=== PATIENT | female | born 1995 | race Caucasian/White ===

== ENCOUNTER 2023-01-08 01:30 | Emergency (ER) | payer OTHER, SELFPAY ==
[2023-01-08] VITALS (7 sets, daily range): BP systolic 115–144; BP diastolic 64–91; PULSE 89–122; RESP 16–26; TEMP 36.7; O2SAT 99–100; BMI 24.9
[2023-01-08] MEDS: ONDANSETRON 2 MG/ML inj 4 MG IVP (01:50)
[2023-01-08] MEDS: LORazepam 2 MG/ML inj 0.5 MG IVP (01:52)
--- NOTE | 2023-01-08 01:54 | ED.GENADULT ---
HPI - General Adult General Time Seen by Provider: 01:55 Date Seen: 01/08/23 Chief complaint: Anxiety Stated complaint: Vomiting, feels like she can't breath. Time Seen by Provider: 01/08/23 01:40 Source: patient, RN notes reviewed and old records reviewed Mode of arrival: ambulatory Limitations: no limitations History of Present Illness HPI narrative: 27-year-old female who comes in today with nausea vomiting. Patient has been dealing with increased anxiety for the last couple of weeks, tonight woke up with nausea and vomiting just prior to coming the emergency department. She denies fever, chills, chest pain, breathing difficulty currently, abdominal pain, diarrhea, hematemesis, urinary symptoms. She has not taken anything for her symptoms. Related Data Home Medications Medication Instructions Recorded Confirmed drospirenone 3 mg-ethinyl 1 tab PO DAILY 01/08/23 01/08/23 estradiol 0.02 mg tablet (Sheeba (28)) fluoxetine 40 mg capsule mg PO 01/08/23 Allergies Allergy/AdvReac Type Severity Reaction Status Date / Time amoxicillin AdvReac Verified 01/08/23 01:40 Review of Systems Status of ROS: Reports: 10 or more systems reviewed and unremarkable except as noted in History and below [facility] Medical History (Updated 01/08/23 @ 02:34 by Vincenzo Bosch MD) No significant past medical history Surgical History (Updated 01/08/23 @ 01:45 by Nash Devlin RN) No significant past surgical history Social History Smoking Status: Never smoker Second hand tobacco smoke exposure: No How often do you have a drink containing alcohol: never How often do you have six or more drinks on one occasion: Never AUDIT-C Alcohol total score: 0 Non-prescribed substance use: denies use Exam Narrative: Exam Narrative: General: Well-developed and well-nourished, appears anxious Head: Atraumatic and normocephalic Eyes: Pupils are equal reactive, extraocular motions intact, conjunctiva clear ENT: External nose and ears are normal, posterior pharynx without erythema or exudate, clear rhinorrhea Neck: No midline cervical tenderness, full spontaneous range of motion the neck, trachea midline, no adenopathy Heart: Tachycardia rate and rhythm no murmurs or thrills Lungs: Clear to auscultation bilaterally without wheezes or crackles Abdomen: Soft, nontender, nondistended with active bowel sounds Musculoskeletal: No tenderness, deformity, or edema Neurologic: Awake, alert, and oriented x3, no gross focal neurologic deficits, cranial nerves intact as tested Psych: Mood and affect are appropriate Skin: No rashes Const: Vital Signs, click to edit/add: Vital Signs - 24 hr 01/08/23 01:37 01/08/23 01:50 01/08/23 02:00 Temperature 98.1 F Pulse Rate 99 Pulse Rate [Pulse Oximeter] 122 H Respiratory Rate 26 H 16 Blood Pressure 129/80 Blood Pressure [Ri ght Upper Arm] 144/91 H Pulse Oximetry 99 99 100 Oxygen Delivery Me thod Room Air Course Course ED Course: Patient seen examined, prior records reviewed. Patient presents today with anxiety for couple weeks, vomiting this evening. On exam, tachycardic, hyperactive bowel sounds. Lungs are clear, no abdominal tenderness. Labs ordered along with Zofran and Ativan, will monitor in the department. Reevaluation(s) Time of Reevaluation #1: 02:33 Reevaluation #1: Labs independently interpreted by me with normal basic panel, normal hepatic panel other than slightly elevated AST, alcohol negative. Patient is feeling better after Zofran and Ativan and is stable for discharge. On recheck, she says she has a little lightheaded in her head feels ?floaty. ? This likely as a side effect of the Ativan and should resolve, fluid boluses ordered. Vital Signs Vital signs: Initial Vital Signs Temperature 98.1 F 01/08/23 01:37 Temperature Source Temporal Artery Scan 01/08/23 01:37 Pulse Rate 122 H 01/08/23 01:37 Respiratory Rate 26 H 01/08/23 01:37 Respiratory Effort Normal, Spontaneous, Non-Labored 01/08/23 01:37 Respiratory Depth Normal 01/08/23 01:37 Respiratory Pattern Normal 01/08/23 01:37 Blood Pressure 144/91 H 01/08/23 01:37 Blood Pressure Mean 108 H 01/08/23 01:37 Blood Pressure Position Sitting 01/08/23 01:37 Pulse Oximetry 99 01/08/23 01:37 Oxygen Delivery Method Room Air 01/08/23 01:37 Vital Signs Temperature 98.1 F 01/08/23 01:37 Pulse Rate 122 H 01/08/23 01:37 Respiratory Rate 26 H 01/08/23 01:37 Blood Pressure 144/91 H 01/08/23 01:37 Pulse Oximetry 99 01/08/23 01:37 Oxygen Delivery Method Room Air 01/08/23 01:37 Temperature 98.1 F 01/08/23 01:37 Pulse Rate 99 01/08/23 02:00 Respiratory Rate 16 01/08/23 02:00 Blood Pressure 129/80 01/08/23 02:00 Pulse Oximetry 100 01/08/23 02:00 Oxygen Delivery Method Room Air 01/08/23 01:37 Medical Decision Making Medical Records Medical records reviewed: Yes I reviewed the patient's medical records Lab Data Lab results reviewed: Yes I reviewed the patient's lab results Labs: Lab Results 01/08/23 Range/Units 01:35 Sodium 140 (135-149) mmol/L Potassium 4.1 (3.6-5.1) mmol/L Chloride 104 (96-114) mmol/L Carbon Dioxide 22 (20-32) mmol/L Anion Gap 14 (7-15) mEq/L BUN 10 (5-24) mg/dL Creatinine 0.7 (0.5-1.5) mg/dL Estimated Creat Clear 104.24 Estimated GFR 121 ml/min Glucose 100 (60-115) mg/dL Calcium 10.1 (8.4-10.6) mg/dL Magnesium 2.0 (1.5-2.6) mg/dL Total Bilirubin 0.7 (0.1-1.5) mg/dL Direct Bilirubin 0.2 (0.0-0.5) mg/dL AST 46 H (12-35) U/L ALT 22 (4-35) U/L Alkaline Phosphatase 114 (40-150) U/L Total Protein 9.1 H (6.0-8.3) g/dL Albumin 4.9 (3.3-5.0) g/dL Ethyl Alcohol < 0.01 L (0.01-0.03) % Discharge Plan Discharge Clinical Impression: Acute anxiety, Nausea & vomiting Patient Disposition: Home, Self-Care Condition: Stable Instructions: Acute Nausea and Vomiting (DC), Anxiety (ED) Additional Instructions: Take medications as prescribed. You may develop some diarrhea in the next 24 hours. Activity Level: Activity as Tolerated Discharge Diet: Regular Prescriptions: No Action fluoxetine 40 mg capsule PO drospirenone-ethinyl estradiol [Sheeba (28)] 3-0.02 mg tablet 1 tab PO DAILY Follow Up/Referrals: Provider,Not a Local [Primary Care Provider] - Stand Alone Forms: [employer] Info Instructions
[2023-01-08] MEDS: 0.9 % SODIUM CHLORIDE 500 ML 500 ML 6000 ML IV (02:00)
[2023-01-08 02:13] LABS: Albumin* 4.9 g/dL (3.3-5.0); Chloride* 104 mmol/L (96-114); Sodium* 140 mmol/L (135-149)
[2023-01-08 02:14] LABS: Potassium* 4.1 mmol/L (3.6-5.1)
[2023-01-08 02:15] LABS: Creatinine* 0.7 mg/dL (0.5-1.5); Est. Creatinine Clearance* 104.24; Estimated Glomerular Filt Rate 121 ml/min
[2023-01-08 02:16] LABS: Alanine Aminotransferase* 22 U/L (4-35); Alkaline Phosphatase* 114 U/L (40-150); Anion Gap 14 mEq/L (7-15); Aspartate Amino Transferase* 46 U/L (12-35); Bilirubin Direct* 0.2 mg/dL (0.0-0.5); Bilirubin Total* 0.7 mg/dL (0.1-1.5); Blood Urea Nitrogen* 10 mg/dL (5-24); Calcium* 10.1 mg/dL (8.4-10.6); Carbon Dioxide* 22 mmol/L (20-32); Glucose* 100 mg/dL (60-115); Total Protein* 9.1 g/dL (6.0-8.3)
[2023-01-08 02:23] LABS: Ethanol* < 0.01 % (0.01-0.03)
== END 2023-01-08 04:45 | disposition home or self-care (01) ==
PROVIDERS: Emergency Provider Family Medicine
DX: R11.2 Nausea with vomiting, unspecified (principal); F41.9 Anxiety disorder, unspecified
CPT/HCPCS: 36415; 80048; 80076; 82077; 83735; 94761; 96374; 96375; 99284; J2060; J2405; J7120

== ENCOUNTER 2023-01-16 10:24 | Emergency (ER) | payer OTHER, SELFPAY ==
[2023-01-16 10:33] VITALS: BP 160/121; PULSE 123; RESP 14; TEMP 37.7; O2SAT 98; BMI 24.9
[2023-01-16] MEDS: LORazepam 2 MG/ML inj 1 MG IM (11:05)
[2023-01-16 11:11] VITALS: O2SAT 98
--- NOTE | 2023-01-16 11:56 | ED.GENADULT ---
HPI - General Adult General Chief complaint: Nausea/Vomiting Stated complaint: Short of breath Time Seen by Provider: 01/16/23 10:56 History of Present Illness HPI narrative: This 27-year-old female comes in with lots of anxiety. She has a history of depression and anxiety symptoms. She states that she has been taking Prozac 60 mg daily and bupropion for the past couple years. This was working well for her until about a month ago when she began having significant increase of anxiety with insomnia. She states that there are some circumstances at of triggered this including some attitude Z and actions of people around her that are negative toward her. Prior to starting Prozac she had been taking Zoloft for a couple years. She does not report any suicidality. She does not indicate any hallucinations or other problems. She has increased heart rate and is tearful and has nausea and vomiting. She attributes all these symptoms to anxiety. Related Data Home Medications Medication Instructions Recorded Confirmed drospirenone 3 mg-ethinyl 1 tab PO DAILY 01/08/23 01/16/23 estradiol 0.02 mg tablet (Sheeba (28)) fluoxetine 40 mg capsule 120 mg PO 01/08/23 Previous Rx's Medication Instructions Recorded escitalopram oxalate 10 mg tablet 10 mg PO DAILY #60 tabs 01/16/23 (Lexapro) lorazepam 1 mg tablet (Ativan) 1 mg PO BID PRN #20 tabs 01/16/23 Allergies Allergy/AdvReac Type Severity Reaction Status Date / Time amoxicillin AdvReac Verified 01/08/23 01:40 Review of Systems Status of ROS: Reports: 10 or more systems reviewed and unremarkable except as noted in History and below Narrative: Constitutional: No fevers, no weight gain or loss. Eyes: No discharge. No vision changes. HENT: No congestion, no sore throat, no ear pain. Cardiovascular: No chest pain, no palpitations. Respiratory: No shortness of breath, no wheezes, no cough. Gastrointestinal: No abdominal pain, no vomiting, no diarrhea. Genitourinary: No dysuria, no hematuria. Musculoskeletal: Normal range of motion. Skin: No rashes, no pruritis. Neurological: No dizziness, weakness, sensory change, speech change. Endo/Heme/Allergies: No bruising or bleeding. No polydipsia. Pysch: no suicidality. Depression with anxiety. Insomnia. All other systems reviewed and are negative. PFSH PFSH Medical History (Updated 01/16/23 @ 12:03 by Eh Bernard MD) No significant past medical history Surgical History (Updated 01/08/23 @ 01:45 by Nash Devlin RN) No significant past surgical history Social History Smoking Status: Never smoker Second hand tobacco smoke exposure: No How often do you have a drink containing alcohol: never How often do you have six or more drinks on one occasion: Never AUDIT-C Alcohol total score: 0 Non-prescribed substance use: denies use Exam Narrative: Exam Narrative: Constitutional: Well-developed, well-nourished. HEENT: Normocephalic, atraumatic. Neck: Normal range of motion. Nontender. Supple. Heart: Regular. No murmurs. Normal rate. Intact distal pulses. Lungs: Clear to auscultation. No chest discomfort. No wheezes, rhonchi, or rales. Abdomen: Normal bowel sounds. Nontender. No rebound tenderness. Genitalia: Deferred. Back: No midline tenderness. Normal range of motion. Extremities: Normal range of motion. No injury. Skin: Intact. No rash. Warm. No erythema or pallor. Neurologic: No altered sensation. No weakness. Alert and oriented. Psychiatric: No suicidality. Tearful and fidgeting with anxiety or panic symptoms. Nursing notes and vitals signs are reviewed. Const: Vital Signs, click to edit/add: Vital Signs - 24 hr 01/16/23 10:33 01/16/23 11:11 Temperature 99.8 F H Pulse Rate [Pulse Oximeter] 123 H Respiratory Rate 14 Blood Pressure [Ri ght Upper Arm] 160/121 H Pulse Oximetry 98 98 Oxygen Delivery Me thod Room Air Course Vital Signs Vital signs: Initial Vital Signs Temperature 99.8 F H 01/16/23 10:33 Temperature Source Temporal Artery Scan 01/16/23 10:33 Pulse Rate 123 H 01/16/23 10:33 Pulse Rhythm Regular 01/16/23 10:33 Respiratory Rate 14 01/16/23 10:33 Blood Pressure 160/121 H 01/16/23 10:33 Blood Pressure Mean 134 H 01/16/23 10:33 Blood Pressure Position Sitting 01/16/23 10:33 Pulse Oximetry 98 01/16/23 10:33 Oxygen Delivery Method Room Air 01/16/23 10:33 Vital Signs Temperature 99.8 F H 01/16/23 10:33 Pulse Rate 123 H 01/16/23 10:33 Respiratory Rate 14 01/16/23 10:33 Blood Pressure 160/121 H 01/16/23 10:33 Pulse Oximetry 98 01/16/23 10:33 Oxygen Delivery Method Room Air 01/16/23 10:33 Temperature 99.8 F H 01/16/23 10:33 Pulse Rate 123 H 01/16/23 10:33 Respiratory Rate 14 01/16/23 10:33 Blood Pressure 160/121 H 01/16/23 10:33 Pulse Oximetry 98 01/16/23 11:11 Oxygen Delivery Method Room Air 01/16/23 10:33 Medical Decision Making MDM Narrative Medical decision making narrative: This patient arrives with lots of anxiety and panic. She has had some nausea with vomiting and did not feel that she could take an oral medication. She did receive an intramuscular injection of Ativan 1 mg. This brought significant improvement to her symptoms. She does see a therapist and has been to a psychiatrist in the past. She also has a primary physician. It seems that these current medications she is on are not sufficiently managing her symptoms especially as that is related to anxiety. I discussed options with her including switching out of Prozac into a different medication. She is agreeable to this plan and will taper off of her Prozac and into Lexapro. Additionally I did prescribe Ativan tablets and stressed the importance of avoiding alcohol and stated that we will not refill this medication but this should help her in the transition to hopefully a better long-term regimen for treating her depression and anxiety. She is instructed to follow-up with her primary physician and psychiatrist if able. She also can connect with her therapist. Discharge Plan Discharge Clinical Impression: Acute anxiety Patient Disposition: Home, Self-Care Condition: Improved Additional Instructions: Decrease Prozac to 2 tablets daily for 1 week then 1 tablet daily for the next week then discontinue. Simultaneously start Lexapro 10 mg daily for 1 week then increase to 20 mg daily. Use Ativan as needed for breakthrough anxiety symptoms. Follow-up with primary physician and/or psychiatrist for ongoing management. Return if worsening. Prescriptions: New lorazepam [Ativan] 1 mg tablet 1 mg PO BID PRNQty: 20 0RF escitalopram oxalate [Lexapro] 10 mg tablet 10 mg PO DAILY Qty: 60 2RF No Action fluoxetine 40 mg capsule 120 mg PO drospirenone-ethinyl estradiol [Sheeba (28)] 3-0.02 mg tablet 1 tab PO DAILY Follow Up/Referrals: Provider,Not a Local [Primary Care Provider] - Stand Alone Forms: [employer] Info Instructions
[2023-01-16 12:00] VITALS: PULSE 98; RESP 14; O2SAT 100
--- NOTE | 2023-01-16 12:03 | ED.NURSE ---
Pt states she feels improvement after med.
[2023-01-16 12:13] VITALS: BP 160/121; PULSE 92; RESP 14; TEMP 37.7
== END 2023-01-16 12:13 | disposition home or self-care (01) ==
PROVIDERS: Emergency Provider Emergency Medicine Emergency Medical Services
DX: F41.9 Anxiety disorder, unspecified (principal)
CPT/HCPCS: 94761; 96372; 99284; J2060

== ENCOUNTER 2023-01-29 07:20 | Outpatient (CLI) | payer OTHER, SELFPAY | END 2023-01-29 07:21 | disposition home or self-care (01) | LOC: AMB 02-01 15:14 | PROVIDERS: PCP Family Medicine; Visit Provider Emergency Medicine | DX: R45.851 Suicidal ideations (principal) | CPT/HCPCS: A0425; A0429 ==

== ENCOUNTER 2023-01-29 07:44 | Emergency (ER) | payer OTHER, SELFPAY ==
[2023-01-29 07:53] VITALS: BP 147/101; PULSE 99; RESP 18; TEMP 37.3; O2SAT 99
[2023-01-29 08:14] LABS: Appearance Urine Clear (Clear); Bilirubin Urine Negative (Negative); Blood Urine Negative (Negative); Color Urine Yellow (Yellow); Glucose Urine Negative (Negative); Ketones Urine Negative (Negative); Leukocyte Esterase Urine Negative (Negative); Nitrite Urine Negative (Negative); Protein Urine Negative (Negative); Urobilinogen Urine 0.2 (0.2-1.0)
[2023-01-29 08:24] LABS: Amphetamine Screen Urine Negative (Negative); Barbiturate Screen Urine Negative (Negative); Benzodiazepines Screen Urine POSITIVE (Negative); Cannabinoid Screen Urine Negative (Negative); Cocaine Screen Urine Negative (Negative); Methadone Screen Urine Negative (Negative); Methamphetamines Screen Urine Negative (Negative); Opiate Screen Urine Negative (Negative); Oxycodone Screen Urine Negative (Negative); Phencyclidine Screen Urine Negative (Negative); Tricyclic Antidepressant Urine Negative (Negative)
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
[2023-01-29 08:28] LABS: Bacteria Urine Few; RBC Urine 0-2 (0-2); Squamous Epithelial Cell Urine Few (None-Few); WBC Urine 0-2 (0-5)
[2023-01-29 08:29] LABS: Amorphous Sediment Urine Few
[2023-01-29] MEDS: LORazepam 0.5 MG TABLET PO (10:44)
[2023-01-29] MEDS: ONDANSETRON ODT 4 MG TAB PO (10:44)
[2023-01-29] MEDS: ACETAMINOPHEN 500 MG TABLET 1000 MG PO (10:44)
== END 2023-01-29 10:43 | disposition home or self-care (01) ==
PROVIDERS: Emergency Provider Student in an Organized Health Care Education/Training Program; PCP Family Medicine
DX: F10.90 Alcohol use, unspecified, uncomplicated (principal); F32.A Depression, unspecified
CPT/HCPCS: 80306; 81001; 87086; 99283; A9270

== ENCOUNTER 2023-04-06 08:04 | Emergency (ER) | payer OTHER, SELFPAY ==
[2023-04-06 08:09] VITALS: BP 152/104; PULSE 112; RESP 16; TEMP 36.8; O2SAT 100; BMI 25.7
--- NOTE | 2023-04-06 08:30 | ED.GENADULT ---
HPI - General Adult General Chief complaint: Nausea/Vomiting Stated complaint: Vomited blood Time Seen by Provider: 04/06/23 08:07 History of Present Illness HPI narrative: Patient is a 27-year-old white female has history of depression anxiety is on meds for this including Abilify and Prozac. She had a break-up with a long standing significant other yesterday has been very stressed and anxious. She vomited this morning noticed a small amount of blood in the vomitus. She has had upper respiratory congestion over last few days and little bit of sore throat. She does not feel dizzy lightheaded no chest pain, no difficulty breathing, no history of bleeding or clotting problems. No history of varices. The patient does report she drinks heavily at times but not daily. She has not had any gastritis or GI bleeding in the past. She has had no dark stools. Related Data Home Medications Medication Instructions Recorded Confirmed drospirenone 3 mg-ethinyl 1 tab PO DAILY 01/08/23 04/06/23 estradiol 0.02 mg tablet (Sheeba (28)) fluoxetine 40 mg capsule 120 mg PO DAILY 01/08/23 04/06/23 aripiprazole 10 mg tablet (Abilify) 10 mg PO DAILY 04/06/23 04/06/23 ondansetron HCl 4 mg tablet 4 mg PO DAILY PRN 04/06/23 04/06/23 Allergies Allergy/AdvReac Type Severity Reaction Status Date / Time amoxicillin AdvReac Verified 04/06/23 08:08 Review of Systems Status of ROS: Reports: 6 or more systems reviewed and unremarkable except as noted in History and below PFSH [facility] Medical History No significant past medical history Surgical History No significant past surgical history Social History Smoking Status: Never smoker Do you use any of these nicotine containing products: None Second hand tobacco smoke exposure: No How often do you have a drink containing alcohol: 2-4 times a month How often do you have six or more drinks on one occasion: Never AUDIT-C Alcohol total score: 2 Non-prescribed substance use: denies use Exam Narrative: Exam Narrative: Objective: Patient's blood pressure is elevated elevated, pulse rate is 112, afebrile Alert orient x3 noncyanotic, HEENT is unremarkable, no scleral icterus, throat is clear, neck supple Heart rhythm regular without murmur Chest is clear Abdomen benign soft nontender no masses no epigastric pain no palpable tenderness Extremities good perfusion neurologic nonfocal Const: Vital Signs, click to edit/add: Vital Signs - 24 hr 04/06/23 08:09 Temperature 98.3 F Pulse Rate [Pulse Oximeter] 112 H Respiratory Rate 16 Blood Pressure [Ri ght Upper Arm] 152/104 H Pulse Oximetry 100 Oxygen Delivery Me thod Room Air Course Vital Signs Vital signs: Initial Vital Signs Temperature 98.3 F 04/06/23 08:09 Temperature Source Temporal Artery Scan 04/06/23 08:09 Pulse Rate 112 H 04/06/23 08:09 Respiratory Rate 16 04/06/23 08:09 Blood Pressure 152/104 H 04/06/23 08:09 Blood Pressure Mean 120 H 04/06/23 08:09 Blood Pressure Position Sitting 04/06/23 08:09 Pulse Oximetry 100 04/06/23 08:09 Oxygen Delivery Method Room Air 04/06/23 08:09 Vital Signs Temperature 98.3 F 04/06/23 08:09 Pulse Rate 112 H 04/06/23 08:09 Respiratory Rate 16 04/06/23 08:09 Blood Pressure 152/104 H 04/06/23 08:09 Pulse Oximetry 100 04/06/23 08:09 Oxygen Delivery Method Room Air 04/06/23 08:09 Temperature 98.3 F 04/06/23 08:09 Pulse Rate 112 H 04/06/23 08:09 Respiratory Rate 16 04/06/23 08:09 Blood Pressure 152/104 H 04/06/23 08:09 Pulse Oximetry 100 04/06/23 08:09 Oxygen Delivery Method Room Air 04/06/23 08:09 Medications Administered Medications: Discontinued Medications Generic Name Dose Route Start Last Admin Trade Name Freq PRN Reason Stop Dose Admin Sodium Chloride 1,000 mls @ 6,000 mls/hr 04/06/23 08:30 04/06/23 08:53 0.9 % Sodium Chloride 1000 Ml IV 04/06/23 08:39 6,000 mls/hr .Q10M CHILANGO Administration Ondansetron HCl 4 mg 04/06/23 08:29 04/06/23 08:46 Ondansetron 2 Mg/Ml Inj IVP 04/06/23 08:30 4 mg ONCE ONE Administration Pantoprazole Sodium 40 mg 04/06/23 08:29 04/06/23 08:50 Pantoprazole Sodium 40 Mg Inj IVP 04/06/23 08:30 40 mg ONCE ONE Administration Medical Decision Making MDM Narrative Medical decision making narrative: [age] year white female with depression anxiety and emesis this morning, she has been through a lot of stress last 24 hours. She noticed a little bit of blood tinged vomitus this morning. She has not vomited since has not had black stools. Does not feel dizzy or lightheaded. I think at this point treating with Protonix, IV fluid, IV Zofran would be appropriate will check CBC electrolytes. Give IV fluid as mention. Disposition pending findings. Patient possibly has gastritis from stress and alcohol, and certainly proton pump inhibitor may be reasonable for couple of weeks. Will also check a test. Addendum 9:48 a.m.: Patient feels better she has not vomited any further. She has laboratory studies that show a normal white count hemoglobin normal ER profile, AST slightly elevated CRP is minimally elevated 1.5, urine test is negative. I would recommend Prilosec daily for the next couple of weeks, fluids, light activity, avoid any aspirin, Advil, Aleve, may take Tylenol, would take the Prilosec 20 mg daily for the next 2 weeks as mention. Follow up with primary care in the next week. Avoid alcohol as well. Lab Data Labs: Lab Results 04/06/23 04/06/23 Range/Units 08:35 08:45 WBC 6.90 (4.50-11.00) K/uL RBC 4.64 (4.00-5.20) m/uL Hgb 14.0 (12.0-16.0) gm/dL Hct 41.4 (33.0-51.0) % MCV 89 (80-100) fL MCH 30 (26-34) pg MCHC 34 (32-36) gm/dL RDW Coeff of Wilma 14.4 (11.5-15.5) % Plt Count 304 (140-440) K/uL Neut % (Auto) 67.8 (42.0-72.0) % Lymph % (Auto) 22.8 (20-44) % Bacon % (Auto) 6.7 (0.0-11.0) % Eos % (Auto) 2.2 (0.0-7.0) % Baso % (Auto) 0.4 (0.0-3.0) % Neut # (Auto) 4.68 (1.7-7.0) K/uL Lymph # (Auto) 1.57 (0.90-2.90) K/uL Bacon # (Auto) 0.50 (0.00-0.90) K/UL Eos # (Auto) 0.15 (0.00-0.50) K/uL Baso # (Auto) 0.03 (0.00-0.30) K/uL Abs Immat Gran (auto) 0.01 (0.00-0.30) K/uL Imm/Tot Granulo (auto) 0.1 % Sodium 140 (135-149) mmol/L Potassium 3.5 L (3.6-5.1) mmol/L Chloride 107 (96-114) mmol/L Carbon Dioxide 23 (20-32) mmol/L Anion Gap 10 (7-15) mEq/L BUN 12 (5-24) mg/dL Creatinine 0.6 (0.5-1.5) mg/dL Estimated Creat Clear 116.51 Estimated GFR 126 ml/min Glucose 85 (60-115) mg/dL Calcium 9.3 (8.4-10.6) mg/dL Total Bilirubin 0.3 (0.1-1.5) mg/dL Direct Bilirubin 0.0 (0.0-0.5) mg/dL AST 44 H (12-35) U/L ALT 25 (4-35) U/L Alkaline Phosphatase 127 (40-150) U/L C-Reactive Protein 1.5 H (0.5-1.0) mg/dL Total Protein 8.1 (6.0-8.3) g/dL Albumin 4.5 (3.3-5.0) g/dL Urine HCG, Qual Negative (Negative) Discharge Plan Discharge Clinical Impression: Nausea & vomiting, Gastritis Patient Disposition: Home, Self-Care Condition: Improved Additional Instructions: Light activity, avoid alcohol, Prilosec 20 mg daily for the next 2 weeks. Follow-up with her primary care doctor in the next 2-3 days, sooner changes or concerns return to the ED. avoid aspirin, Advil or Aleve. Activity Level: Light activity Discharge Diet: Full Liquid Diet Detail: Advance diet as tolerated, continue same medications as at home and add Prilosec Prescriptions: No Action fluoxetine 40 mg capsule 120 mg PO DAILY drospirenone-ethinyl estradiol [Sheeba (28)] 3-0.02 mg tablet 1 tab PO DAILY ondansetron HCl 4 mg tablet 4 mg PO DAILY PRN aripiprazole [Abilify] 10 mg tablet 10 mg PO DAILY Follow Up/Referrals: Sumaya Boykin MD [Primary Care Provider] - Stand Alone Forms: [employer] Mobile Info Instructions
[2023-04-06 08:43] LABS: Ur HCG Qualitative* Negative (Negative)
[2023-04-06] MEDS: ONDANSETRON 2 MG/ML inj 4 MG IVP (08:46)
[2023-04-06] MEDS: PANTOPRAZOLE SODIUM 40 MG INJ IVP (08:50)
[2023-04-06] MEDS: 0.9 % SODIUM CHLORIDE 1000 ml 1,000 ML 6000 ML IV (08:53)
[2023-04-06 09:02] LABS: Basophils Absolute Auto 0.03 K/uL (0.00-0.30); Basophils Percent Auto 0.4 % (0.0-3.0); Eosinophils Absolute Auto 0.15 K/uL (0.00-0.50); Eosinophils Percent Auto 2.2 % (0.0-7.0); Hematocrit 41.4 % (33.0-51.0); Immature Granulocytes Abs Auto 0.01 K/uL (0.00-0.30); Immature Granulocytes Pct Auto 0.1 %; Lymphocytes Absolute Auto 1.57 K/uL (0.90-2.90); Lymphocytes Percent Auto 22.8 % (20-44); Mean Corpuscular HGB Conc 34 gm/dL (32-36); Mean Corpuscular Hemoglobin 30 pg (26-34); Mean Corpuscular Volume 89 fL (80-100); Monocytes Percent Auto 6.7 % (0.0-11.0); Neutrophils Absolute Auto 4.68 K/uL (1.7-7.0); Neutrophils Percent Auto 67.8 % (42.0-72.0); Platelet Count* 304 K/uL (140-440); RDW Coefficient of Variation % 14.4 % (11.5-15.5); Red Blood Count 4.64 m/uL (4.00-5.20)
[2023-04-06 09:08] LABS: Slide Review Reflex No
[2023-04-06 09:19] LABS: Albumin* 4.5 g/dL (3.3-5.0); Chloride* 107 mmol/L (96-114)
[2023-04-06 09:20] LABS: Potassium* 3.5 mmol/L (3.6-5.1); Sodium* 140 mmol/L (135-149)
[2023-04-06 09:22] LABS: Creatinine* 0.6 mg/dL (0.5-1.5); Est. Creatinine Clearance* 116.51; Estimated Glomerular Filt Rate 126 ml/min
[2023-04-06 09:23] LABS: Alanine Aminotransferase* 25 U/L (4-35); Alkaline Phosphatase* 127 U/L (40-150); Anion Gap 10 mEq/L (7-15); Aspartate Amino Transferase* 44 U/L (12-35); Bilirubin Total* 0.3 mg/dL (0.1-1.5); Blood Urea Nitrogen* 12 mg/dL (5-24); Calcium* 9.3 mg/dL (8.4-10.6); Carbon Dioxide* 23 mmol/L (20-32); Glucose* 85 mg/dL (60-115); Total Protein* 8.1 g/dL (6.0-8.3)
[2023-04-06 09:25] LABS: C Reactive Protein* 1.5 mg/dL (0.5-1.0)
== END 2023-04-06 09:58 | disposition home or self-care (01) ==
PROVIDERS: Emergency Provider Family Medicine; PCP Family Medicine
DX: K29.70 Gastritis, unspecified, without bleeding (principal)
CPT/HCPCS: 36415; 80048; 80076; 81025; 85025; 86140; 96374; 96375; 99283; 99284; C9113; J2405; J7030

== ENCOUNTER 2023-06-15 18:56 | Emergency (ER) | payer OTHER, SELFPAY ==
[2023-06-15 19:03] VITALS: BP 167/94; PULSE 106; RESP 106; TEMP 37.3; O2SAT 100; BMI 24.0
[2023-06-15 19:14] LABS: Appearance Urine Clear (Clear); Bilirubin Urine Negative (Negative); Blood Urine Negative (Negative); Color Urine Yellow (Yellow); Glucose Urine Negative (Negative); Ketones Urine Negative (Negative); Leukocyte Esterase Urine Negative (Negative); Nitrite Urine Negative (Negative); Protein Urine Negative (Negative); Specific Gravity Urine 1.015 (1.000-1.030); Urobilinogen Urine 0.2 (0.2-1.0)
--- NOTE | 2023-06-15 19:18 | ED.GENADULT ---
HPI - General Adult General Chief complaint: Flank Pain Stated complaint: Kidney pain Time Seen by Provider: 06/15/23 19:05 History of Present Illness HPI narrative: This 27-year-old female comes in reporting some pain in her right flank region in the midportion of her back. She states that it has been present on and off over the past month or so. There has not been any particular injury event and she does not have any symptoms of dysuria. She comes in today because she felt like the pain spread across to her left flank and this caused significant anxiety for her. She states that she quit drinking alcohol 5 days ago and is also quit using tobacco products. She is taking Abilify and Prozac as prescribed. She states that her anxiety is related primarily to her flank pain and once she is reassured with this she feels that she will not be so anxious. Related Data Home Medications Medication Instructions Recorded Confirmed drospirenone 3 mg-ethinyl 1 tab PO DAILY 01/08/23 04/06/23 estradiol 0.02 mg tablet (Sheeba (28)) fluoxetine 40 mg capsule 120 mg PO DAILY 01/08/23 04/06/23 aripiprazole 10 mg tablet (Abilify) 10 mg PO DAILY 04/06/23 04/06/23 ondansetron HCl 4 mg tablet 4 mg PO DAILY PRN 04/06/23 04/06/23 Allergies Allergy/AdvReac Type Severity Reaction Status Date / Time amoxicillin AdvReac Verified 04/06/23 08:08 Review of Systems Status of ROS: Reports: 10 or more systems reviewed and unremarkable except as noted in History and below Narrative: Constitutional: No fevers, no weight gain or loss. Eyes: No discharge. No vision changes. HENT: No congestion, no sore throat, no ear pain. Cardiovascular: No chest pain, no palpitations. Respiratory: No shortness of breath, no wheezes, no cough. Gastrointestinal: No abdominal pain, no vomiting, no diarrhea. Genitourinary: No dysuria, no hematuria. Musculoskeletal: Normal range of motion. Skin: No rashes, no pruritis. Neurological: No dizziness, weakness, sensory change, speech change. Endo/Heme/Allergies: No bruising or bleeding. No polydipsia. Pysch: no suicidality, no anxiety, no insomnia. All other systems reviewed and are negative. [facility] Medical History No significant past medical history Surgical History No significant past surgical history Social History Smoking Status: Never smoker Do you use any of these nicotine containing products: Smokeless Tobacco Second hand tobacco smoke exposure: No How often do you have a drink containing alcohol: 2-3 times a week How often do you have six or more drinks on one occasion: Never AUDIT-C Alcohol total score: 3 Non-prescribed substance use: denies use Exam Narrative: Exam Narrative: Constitutional: Well-developed, well-nourished, no acute distress. HEENT: Normocephalic, atraumatic. Neck: Normal range of motion. Nontender. Supple. Heart: Regular. No murmurs. Normal rate. Intact distal pulses. Lungs: Clear to auscultation. No chest discomfort. No wheezes, rhonchi, or rales. Abdomen: Normal bowel sounds. Nontender. No rebound tenderness. She reports pain in the right flank region but there is no pain when percussing over right and left kidney areas. Genitalia: Deferred. Back: No midline tenderness. Normal range of motion. Extremities: Normal range of motion. No injury. Skin: Intact. No rash. Warm. No erythema or pallor. Neurologic: No altered sensation. No weakness. Alert and oriented. Psychiatric: No suicidality. No anxiety or depression. No insomnia. Nursing notes and vitals signs are reviewed. Const: Vital Signs, click to edit/add: Vital Signs - 24 hr 06/15/23 19:03 Temperature 99.1 F Pulse Rate [Pulse Oximeter] 106 H Respiratory Rate 106 H Blood Pressure [Ri ght Upper Arm] 167/94 H Pulse Oximetry 100 Oxygen Delivery Me thod Room Air Course Vital Signs Vital signs: Initial Vital Signs Temperature 99.1 F 06/15/23 19:03 Temperature Source Temporal Artery Scan 06/15/23 19:03 Pulse Rate 106 H 06/15/23 19:03 Respiratory Rate 106 H 06/15/23 19:03 Blood Pressure 167/94 H 06/15/23 19:03 Blood Pressure Mean 118 H 06/15/23 19:03 Blood Pressure Position Sitting 06/15/23 19:03 Pulse Oximetry 100 06/15/23 19:03 Oxygen Delivery Method Room Air 06/15/23 19:03 Vital Signs Temperature 99.1 F 06/15/23 19:03 Pulse Rate 106 H 06/15/23 19:03 Respiratory Rate 106 H 06/15/23 19:03 Blood Pressure 167/94 H 06/15/23 19:03 Pulse Oximetry 100 06/15/23 19:03 Oxygen Delivery Method Room Air 06/15/23 19:03 Temperature 99.1 F 06/15/23 19:03 Pulse Rate 106 H 06/15/23 19:03 Respiratory Rate 106 H 06/15/23 19:03 Blood Pressure 167/94 H 06/15/23 19:03 Pulse Oximetry 100 06/15/23 19:03 Oxygen Delivery Method Room Air 06/15/23 19:03 Medical Decision Making MDM Narrative Medical decision making narrative: This patient comes in with concern that her kidneys or liver might not be doing well as she has been having some right flank pain. She quit drinking alcohol and quit using tobacco products and wonders if her kidneys or liver are paying the william for her lifestyle choices. Her physical exam is normal. She is in no acute distress. Much of what drives her visit here is anxiety related to these symptoms and her previous alcohol abuse. Urinalysis returns with normal findings. Additionally lab results also are reassuring with normal kidney and liver function. Additionally I used point of care ultrasound to acquire images of these structures which also showed normal anatomy. The patient is reassured with these results and is okay to return home. I encouraged her to continue avoiding alcohol and tobacco products. The cause of her back pain is not distinctly identified but is most likely musculoskeletal in nature. Lab Data Labs: Lab Results 06/15/23 06/15/23 Range/Units 19:07 19:24 WBC 9.01 (4.50-11.00) K/uL RBC 4.55 (4.00-5.20) m/uL Hgb 13.3 (12.0-16.0) gm/dL Hct 39.9 (33.0-51.0) % MCV 88 (80-100) fL MCH 29 (26-34) pg MCHC 33 (32-36) gm/dL RDW Coeff of Wilma 12.7 (11.5-15.5) % Plt Count 306 (140-440) K/uL Neut % (Auto) 59.3 (42.0-72.0) % Lymph % (Auto) 31.2 (20-44) % Hodgeman % (Auto) 7.2 (0.0-11.0) % Eos % (Auto) 1.9 (0.0-7.0) % Baso % (Auto) 0.3 (0.0-3.0) % Neut # (Auto) 5.34 (1.7-7.0) K/uL Lymph # (Auto) 2.81 (0.90-2.90) K/uL Hodgeman # (Auto) 0.60 (0.00-0.90) K/UL Eos # (Auto) 0.17 (0.00-0.50) K/uL Baso # (Auto) 0.03 (0.00-0.30) K/uL Abs Immat Gran (auto) 0.01 (0.00-0.30) K/uL Imm/Tot Granulo (auto) 0.1 % Sodium 137 (135-149) mmol/L Potassium 3.2 L (3.6-5.1) mmol/L Chloride 103 (96-114) mmol/L Carbon Dioxide 26 (20-32) mmol/L Anion Gap 8 (7-15) mEq/L BUN 14 (5-24) mg/dL Creatinine 0.6 (0.5-1.5) mg/dL Estimated Creat Clear 121.62 Estimated GFR 126 ml/min Glucose 136 H (60-115) mg/dL Calcium 9.7 (8.4-10.6) mg/dL Total Bilirubin 0.3 (0.1-1.5) mg/dL Direct Bilirubin 0.2 (0.0-0.5) mg/dL AST 28 (12-35) U/L ALT 17 (4-35) U/L Alkaline Phosphatase 79 (40-150) U/L Total Protein 7.4 (6.0-8.3) g/dL Albumin 4.2 (3.3-5.0) g/dL Urine Color Yellow (Yellow) Urine Appearance Clear (Clear) Urine pH 7.0 (5.0-8.5) Ur Specific [place] 1.015 (1.000-1.030) Urine Protein Negative (Negative) Urine Glucose (UA) Negative (Negative) Urine Ketones Negative (Negative) Urine Blood Negative (Negative) Urine Nitrite Negative (Negative) Urine Bilirubin Negative (Negative) Urine Urobilinogen 0.2 (0.2-1.0) Ur Leukocyte Esterase Negative (Negative) Urine RBC 0-2 (0-2) Urine WBC 0-2 (0-5) Ur Squamous Epith Cells Many A (None-Few) Urine Bacteria Moderate A (None) Discharge Plan Discharge Clinical Impression: Back pain Patient Disposition: Home, Self-Care Condition: Stable Additional Instructions: Continue avoiding alcohol and tobacco products. Use [id number] medicines as needed and directed. Follow up with MD return if worsening. Prescriptions: No Action fluoxetine 40 mg capsule 120 mg PO DAILY drospirenone-ethinyl estradiol [Sheeba (28)] 3-0.02 mg tablet 1 tab PO DAILY ondansetron HCl 4 mg tablet 4 mg PO DAILY PRN aripiprazole [Abilify] 10 mg tablet 10 mg PO DAILY Follow Up/Referrals: Sumaya Boykin MD [Primary Care Provider] - Stand Alone Forms: [facility] Info Instructions Procedures Ultrasound Renal exam #1: Anatomical areas examined: left kidney, right kidney and other Indications: flank pain Exam type: limited retroperitoneal ultrasound Impression: normal exam Description/Findings: Normal anatomy on ultrasound exam of the left and right kidney, liver, gallbladder, and aorta.
[2023-06-15 19:36] LABS: Bacteria Urine Moderate; RBC Urine 0-2 (0-2); Squamous Epithelial Cell Urine Many (None-Few); WBC Urine 0-2 (0-5)
[2023-06-15 19:40] LABS: Basophils Absolute Auto 0.03 K/uL (0.00-0.30); Basophils Percent Auto 0.3 % (0.0-3.0); Eosinophils Absolute Auto 0.17 K/uL (0.00-0.50); Eosinophils Percent Auto 1.9 % (0.0-7.0); Hematocrit 39.9 % (33.0-51.0); Hemoglobin* 13.3 gm/dL (12.0-16.0); Immature Granulocytes Abs Auto 0.01 K/uL (0.00-0.30); Immature Granulocytes Pct Auto 0.1 %; Lymphocytes Absolute Auto 2.81 K/uL (0.90-2.90); Lymphocytes Percent Auto 31.2 % (20-44); Mean Corpuscular HGB Conc 33 gm/dL (32-36); Mean Corpuscular Hemoglobin 29 pg (26-34); Mean Corpuscular Volume 88 fL (80-100); Monocytes Percent Auto 7.2 % (0.0-11.0); Neutrophils Absolute Auto 5.34 K/uL (1.7-7.0); Neutrophils Percent Auto 59.3 % (42.0-72.0); Platelet Count* 306 K/uL (140-440); RDW Coefficient of Variation % 12.7 % (11.5-15.5); Red Blood Count 4.55 m/uL (4.00-5.20); White Blood Count* 9.01 K/uL (4.50-11.00)
[2023-06-15 19:47] LABS: Slide Review Reflex No
[2023-06-15 19:49] LABS: Albumin* 4.2 g/dL (3.3-5.0); Chloride* 103 mmol/L (96-114)
[2023-06-15 19:50] LABS: Potassium* 3.2 mmol/L (3.6-5.1); Sodium* 137 mmol/L (135-149)
[2023-06-15 19:52] LABS: Anion Gap 8 mEq/L (7-15); Aspartate Amino Transferase* 28 U/L (12-35); Bilirubin Direct* 0.2 mg/dL (0.0-0.5); Bilirubin Total* 0.3 mg/dL (0.1-1.5); Carbon Dioxide* 26 mmol/L (20-32); Creatinine* 0.6 mg/dL (0.5-1.5); Est. Creatinine Clearance* 121.62; Estimated Glomerular Filt Rate 126 ml/min; Total Protein* 7.4 g/dL (6.0-8.3)
[2023-06-15 19:53] LABS: Alanine Aminotransferase* 17 U/L (4-35); Alkaline Phosphatase* 79 U/L (40-150); Blood Urea Nitrogen* 14 mg/dL (5-24); Calcium* 9.7 mg/dL (8.4-10.6); Glucose* 136 mg/dL (60-115)
== END 2023-06-15 20:10 | disposition home or self-care (01) ==
PROVIDERS: Emergency Provider Emergency Medicine Emergency Medical Services; PCP Family Medicine
DX: M54.9 Dorsalgia, unspecified (principal)
CPT/HCPCS: 36415; 76775; 80048; 80076; 81001; 85025; 87086; 99283; 99284

== ENCOUNTER 2023-11-03 14:27 | Outpatient (CLI) | payer OTHER, SELFPAY | END 2023-11-03 14:28 | disposition home or self-care (01) | LOC: NFLDREF 11-04 08:07 | PROVIDERS: PCP Family Medicine; Referring Provider Family Medicine; Visit Provider Nurse Practitioner Family | DX: R10.10 Upper abdominal pain, unspecified (principal) | CPT/HCPCS: 87086 ==

== ENCOUNTER 2024-02-25 06:05 | Emergency (ER) | payer OTHER, SELFPAY ==
[2024-02-25 06:16] VITALS: BP 140/85; PULSE 96; RESP 22; TEMP 36.8; O2SAT 99; BMI 24.9
[2024-02-25] MEDS: OMEPRAZOLE 20 MG CAPSULE DR PO (06:50)
[2024-02-25] MEDS: ONDANSETRON ODT 4 MG TAB PO (06:50)
--- NOTE | 2024-02-25 06:52 | ED.GENADULT ---
HPI - General Adult General Chief complaint: Nausea/Vomiting Stated complaint: vomiting blood Time Seen by Provider: 02/25/24 06:30 Source: patient Mode of arrival: ambulatory Limitations: no limitations History of Present Illness HPI narrative: 28-year-old female with significant prior history of heavy alcohol use presents to the emergency department with acute vomiting following episode of drinking last night. She reports that she woke this morning feeling nauseated and had sudden vomiting. After a couple episodes of retching, she noticed some blood-streaked vomit once and does bring a picture to show me. She has not continued to have persistent bleeding. She has had a couple further episodes of vomiting but now upon arrival to the ED is feeling much better. She denies abdominal pain, there is no back pain. She denies difficulty stopping drinking and states that she was sober for a couple of months last year. She denies significant mental health issues. Since she is feeling better, she would like to leave to go to work as her shift starts in about 20 minutes. She is worried about missing work and disappointing her boss. There is no fever, no abdominal trauma. She is not having any diarrhea or bloody stools. She has no prior history of significant upper GI bleed. She is not taking any stomach acid suppressing medications. ED notes are reviewed. She has had several visits for acute alcohol intoxication and gastritis over the last couple of years. No history of anemia, previous GI bleed. Patient has had labs performed this year. Three hemoglobins this year have all been above 13, last was less than 3 months ago. Allergy to amoxicillin, is on contraception. Also takes an antidepressant. ROS is notable for the GI symptoms only, otherwise denies times 12 systems including all other mental health concerns. Related Data Home Medications ?Medication ?Instructions ?Recorded ?Confirmed drospirenone 3 mg-ethinyl 1 tab PO DAILY 01/08/23 02/25/24 estradiol 0.02 mg tablet (Sheeba (28)) fluoxetine 40 mg capsule 120 mg PO DAILY 01/08/23 02/25/24 aripiprazole 10 mg tablet (Abilify) 10 mg PO DAILY 04/06/23 02/25/24 Previous Rx's ?Medication ?Instructions ?Recorded omeprazole 20 mg capsule,delayed 20 mg PO DAILY #30 caps 02/25/24 release ondansetron 4 mg disintegrating 4 mg PO Q6H PRN nausea and 02/25/24 tablet vomiting #10 tabs Allergies Allergy/AdvReac Type Severity Reaction Status Date / Time amoxicillin AdvReac Verified 11/03/23 13:29 PFSH PFS Medical History No significant past medical history Surgical History No significant past surgical history Social History Smoking Status: Never smoker Do you use any of these nicotine containing products: Smokeless Tobacco Second hand tobacco smoke exposure: No How often do you have a drink containing alcohol: 2-3 times a week How often do you have six or more drinks on one occasion: Never AUDIT-C Alcohol total score: 3 Non-prescribed substance use: denies use Exam Const: Vital Signs, click to edit/add: Vital Signs - 24 hr 02/25/24 06:16 Temperature 98.3 F Pulse Rate [Pulse Oximeter] 96 Respiratory Rate 22 Blood Pressure [Ri ght Upper Arm] 140/85 H Pulse Oximetry 99 Oxygen Delivery Me thod Room Air Documenting provider has reviewed patient's vital signs: yes Common normals: no apparent distress General appearance: cooperative and comfortable HENMT: Common normals: normocephalic Head and scalp: normocephalic Face and sinus: normal facial exam Mouth: oral and palatal mucosa normal Throat: posterior oropharynx normal Eye: Common normals: conjunctivae normal General eye: normal appearance of both eyes Conjunctiva: conjunctiva(e) normal Neck & C-Spine: Common normals: full ROM and no lymphadenopathy Resp: Common normals: normal respiratory effort, no use of accessory muscles and clear to auscultation bilaterally Effort & inspection: able to speak in complete sentences Auscultation: clear to auscultation bilaterally Cardio: Common normals: regular rate, regular rhythm, S1 normal heart sound, S2 normal heart sound and no murmurs Rate: regular rate Rhythm: regular rhythm Heart sounds: S1 normal and S2 normal GI: Common normals: Normal to inspection, nondistended, normoactive bowel sounds present, soft to palpation, non-tender, no hepatosplenomegaly and no masses Palpation: soft and no hepatosplenomegaly Extremity: Common normals: normal to inspection and no pedal edema Neuro: Speech: speech normal Gait (neuro): normal gait Motor exam: no tremor noted and no movement abnormalities noted Psych: Appearance: grossly normal Mood and affect: euthymic mood Insight: insight good Judgement: judgment good Skin: Common normals: no rashes or lesions noted General skin exam: no rashes or lesions noted Course Course ED Course: 28-year-old female with single episode of blood-streaked vomit most likely consistent with a Erin-Pisano tear. Multiple normal hemoglobins within the last year, including 1 just a couple of months ago. She is not having any tachycardia, hypotension and her vomiting has resolved. She would not like extensive workup in honestly I think this is reasonable. Did certified alcohol and drug counselor patient that we are seeing some stomach flu patients as well. I do think that her episode was alcohol induced and have offered referrals for alcohol treatment and counseling which she declines at this time. Will give omeprazole and Zofran. I would like her on omeprazole for another 2 weeks and alarm symptoms of persistent GI bleed or other signs of alarm were reviewed and written instructions are provided. Will also give a few Zofran tablets in case the vomiting persists. Patient verbalizes understanding and agreement of plan. We will observe her for period of time in the ED in his long as there is no return of vomiting and she can hold down liquids, she could be discharged. As far as returning to work, I recommended that she him ask for a couple of hours off this morning and then re-evaluate and if she is feeling better she could try to go in and this was most likely alcohol related. 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 She verbalizes understanding and agreement of this plan. Vital Signs Vital signs: Initial Vital Signs Temperature 98.3 F 02/25/24 06:16 Temperature Source Temporal Artery Scan 02/25/24 06:16 Pulse Rate 96 02/25/24 06:16 Respiratory Rate 22 02/25/24 06:16 Blood Pressure 140/85 H 02/25/24 06:16 Blood Pressure Mean 103 02/25/24 06:16 Blood Pressure Position Sitting 02/25/24 06:16 Pulse Oximetry 99 02/25/24 06:16 Oxygen Delivery Method Room Air 02/25/24 06:16 Vital Signs Temperature 98.3 F 02/25/24 06:16 Pulse Rate 96 02/25/24 06:16 Respiratory Rate 22 02/25/24 06:16 Blood Pressure 140/85 H 02/25/24 06:16 Pulse Oximetry 99 02/25/24 06:16 Oxygen Delivery Method Room Air 02/25/24 06:16 Temperature 98.3 F 02/25/24 06:16 Pulse Rate 96 02/25/24 06:16 Respiratory Rate 22 02/25/24 06:16 Blood Pressure 140/85 H 02/25/24 06:16 Pulse Oximetry 99 02/25/24 06:16 Oxygen Delivery Method Room Air 02/25/24 06:16 Medications Administered Medications: Discontinued Medications Generic Name Dose Route Start Last Admin Trade Name Jaren PRN Reason Stop Dose Admin Omeprazole 20 mg 02/25/24 06:43 02/25/24 06:50 Omeprazole [address] PO 02/25/24 06:44 20 mg ONCE ONE Administration Ondansetron HCl 4 mg 02/25/24 06:43 02/25/24 06:50 Ondansetron Odt 4 Mg Tab PO 02/25/24 06:44 4 mg ONCE ONE Administration Discharge Plan Discharge Clinical Impression: Acute alcoholic gastritis, Erin-Pisano tear Patient Disposition: Home, Self-Care Condition: Improved Instructions: Erin-Pisano Syndrome (ED) Additional Instructions: As we discussed, your symptoms seem consistent with a Erin-Pisano tear. This is a slight tear in the upper stomach or lower esophagus area from forceful retching and vomiting. Typically, once the vomiting stops, the bleeding does also. Blood is a very potent laxative and stomach irritant and rarely will continue to bleed without making it known. I recommend that we start you on a stomach acid medicine like omeprazole once daily for the next 2 weeks. This will allow things to fully heal and reduce the chance of repeat bleeding. Would also recommend that we give you an anti nausea medicine like Zofran to help prevent retching and vomiting again. It is important that you abstain from alcohol for at least the next few weeks. As discussed, I think you are probably right that this is alcohol related. However, we are seeing quite a few people with a ?stomach flu?. If you continue to feel much better like you are now, it is okay to try to return to work but if you feel very fatigued, weak, have persistent nausea or diarrhea, he should stay home from work until you are feeling better, especially since you do work around preparing food. If you have severe bleeding, persistent black tarry stools, significant weakness or are vomiting up blood clots, you should return to the emergency department. Activity Level: Activity as Tolerated Prescriptions: New omeprazole 20 mg capsule,delayed release(DR/EC) 20 mg PO DAILY Qty: 30 3RF ondansetron 4 mg tablet,disintegrating 4 mg PO Q6H PRN (Reason: nausea and vomiting) Qty: 10 0RF No Action fluoxetine 40 mg capsule 120 mg PO DAILY drospirenone-ethinyl estradiol [Sheeba (28)] 3-0.02 mg tablet 1 tab PO DAILY aripiprazole [Abilify] 10 mg tablet 10 mg PO DAILY Follow Up/Referrals: Sumaya Boykin MD [Primary Care Provider] - Stand Alone Forms: [employer] Info Instructions
== END 2024-02-25 07:05 | disposition home or self-care (01) ==
LOC: ED 06:59
PROVIDERS: Emergency Provider Family Medicine; PCP Family Medicine
DX: K29.20 Alcoholic gastritis without bleeding (principal); K22.6 Gastro-esophageal laceration-hemorrhage syndrome
CPT/HCPCS: 99283; A9270

== ENCOUNTER 2024-04-26 17:19 | Emergency (ER) | payer OTHER, SELFPAY ==
--- OUTSIDE RECORDS SUMMARY | 2024-04-26 17:22 | XMS_ITS | Clinical Summary ---
Author Organization [facility] Address [place], [place] [address] Care Team Providers Care Client Project Coordinator Name Role Phone Sumaya Boykin MD Primary Care Provider Allergies Active Allergy Reactions Criticality Noted Date Comments Amoxicillin-Pot Clavulanate Diarrhea 04/08/2009 augmentin Clavulanic Acid Diarrhea High 04/16/2017 Unlisted Allergen (Include Detail In Comments) *Unknown - Childhood Rxn Low 12/01/2008 Medications ondansetron (ZOFRAN ODT) 4 mg disintegrating tabletIndications:N ausea Place 1 Tablet (4 mg) on the tongue every 8 hours if needed for Nausea/Vomit ing. As directed 20 Tablet 3 Active drospirenone-ethiny l estradioL (Sheeba, 28,) 3-0.02 mg tabletIndications:M enorrhagia with regular cycle Take 1 Tablet by mouth once daily. 84 Tablet 3 4 Active ALPRAZolam (XANAX) 0.5 mg tabletIndications:A nxiety due to invasive procedure Take 1 Tablet (0.5 mg) by mouth one time if needed for Anxiety for up to 1 dose. 1 Tablet 4 Active oxyCODONE (ROXICODONE) 5 mg immediate release tabletIndications:A nxiety due to invasive procedure Take 1 tablet 30 minutes before procedure. 1 Tablet 4 Active ondansetron (ZOFRAN) 4 mg tabletIndications:A nxiety due to invasive procedure Take 1 Tablet (4 mg) by mouth one time if needed for Nausea/Vomit ing for up to 1 dose. 1 Tablet 4 Active omeprazole 20 mg tabletIndications:A bdominal pain, epigastric Take 1 Tablet (20 mg) by mouth once daily before a meal. 90 Tablet 3 4 Active FLUoxetine (PROZAC) 20 mg capsuleIndications: Moderate episode of recurrent major depressive disorder (HC),Obsessive-comp ulsive disorder, unspecified type,LEDA (generalized anxiety disorder) Take 6 Capsules (120 mg) by mouth once daily. 540 Capsule 1 4 Active ARIPiprazole (ABILIFY) 5 mg tabletIndications:M oderate episode of recurrent major depressive disorder (HC),Obsessive-comp ulsive disorder, unspecified type Take 1 Tablet (5 mg) by mouth once daily. 90 Tablet 1 4 Active Active Problems Problem Noted Date Diagnosed Date Gastritis 10/28/2023 High grade squamous intraepi thelial lesion (HGSIL), grade 3 DON, on biopsy of cervix 07/16/2023 Dysplasia of cervix, high grade DON 2 07/16/2023 Cervical high risk HPV (human papillomavirus) te st positive 04/19/2021 Overview (07/09/2023): 03/2021 LSIL/HPV 18+, HPV 16 negative 05/2021 [place]: DON 1 05/2022 NIL/HPV Negative 06/2023 NIL/HPV+, HPV 18+, HPV 16 negative Plan: Colposcopy History of eating disorder 09/09/2018 Gastroesophageal reflux disease without esophagi tis 09/13/2016 Acne vulgaris 02/20/2016 ADD (attention deficit disorder) 06/07/2010 Obsessive compulsive disorder 06/07/2010 Encounters Date Type Department Care Team Description 03/04/2024 Telephone [facility] [address] [place] [address] Judith Leo MD Late Cancel Appointment 02/12/2024 Refill [facility] [address] [place] [address] Dick Nj MD Refill Request (Ondansetron) 02/11/2024 Travel from Last 3 Months Immunizations Name Administration Dates Next Due AMB INFLUENZA, IIV4 (AGE=>6M OS) MDV (Flu Clinic Only) 12/09/2018 AMB Influenza, IIV3 (Age >=3 years) Preserve Free (Flu Clinic Only) 01/17/2012 AMB Influenza, IIV3 (Age >=3 years)(Flu Clinic Only) 01/24/2011,01/20/2010 COVID-19 vaccine (Thi-J& J) PF, MDV 06/16/2020 DTP-HIB 1996, 6,1995,1995 DTaP 08/03/1999,07/19/1998 DTaP-HIB (TriHIBIT) 1996, 6,1995,1995 Dtap-5 Pertussis Antigens 08/03/1999,,1996,1995,1995,1995 HIB PRP-T (ActHIB,Hiberix) 1996,,1995,1995 HPV 9 (Gardasil 9) 10/18/2021,05/17/2021, 022 Hep A, Ped/adol, 3 Dose 12/07/2003,02/28/2003 Hepatitis A (Peds) 12/07/2003,02/28/2003 Hepatitis B (Peds) 02/09/1996,1995, 996 Hepatitis B, Unspecified 02/09/1996,1995 Inactivated Polio Vaccine 08/03/1999,01/1996,1995,1995 Influenza A (H1N1), Inactiva jaclyn (Age >=3 Years) 02/02/2009 Influenza Virus, Unspecified 12/18/2013, 01/23/2013,01/13/2008,2005,01/29/2002,01/10/2000,02/16/1999,1 ,01/20/1998,01/10/1997 Influenza, IIV3 (Age 6-35 mos) 01/24/2011,1997,01/10/1997 Influenza, IIV3 (Age >=3 years) 01/13/20 08,02/03/2006,02/09/2005,2003,01/15/2003,01/29/2002,01/10/2000,1 04/18/1998,01/15/1999 Influenza, IIV4 01/25/2022,03/28/2021,12/29/2017 Influenza, IIV4 (=>6mos) MDV 01/03/2020,01/07/20 18,12/19/2016 Influenza,CCIIV4 PRESERV FREE 12/09/2018 MMR 08/03/1999,1996 Oral Polio Vaccine 08/03/1999, 6,1995,1995 Polio Virus, Unspecified 08/03/1999,01/29,1995,1995 Tdap 05/15/2017,10/22/2007 Tuberculin (PPD) 08/21/2009 Varicella Vaccine 10/22/2007,08/10/2001 Family History Medical History Relation Name Comments Diabetes Maternal Grandfather Diabetes Maternal Grandmother Diabetes Paternal Aunt Relation Name Status Comments Brother Alive Father Alive Maternal Grandfather Maternal Grandmother Mother Alive Paternal Aunt Sister Alive Social History Tobacco Use Types Packs/Day Years Used Date Smoking Tobacco: Never Smokeless Tobacco: Never Tobacco Cessation:Counseling Given: Yes Alcohol Use Standard Drinks/Week Comments Yes 3 (1 standard drink = 0.6 oz pur e alcohol) occasionally/on weekends PHQ-2 Answer Date Recorded PHQ-2 TOTAL SCORE 2 12/03/2023 Social Connections Answer Date Recorded Do you often feel lonely or isolated from those around you? 4 07/01/2023 Alcohol Use Answer Date Recorded How often do you have a drink containing alcohol ? 2 07/15/2022 Average Number of Drinks Not on file 023 Frequency of Binge Drinking Not on file 06/29 Financial Resource Strain Answer Date R ecorded Difficulty of Paying Living Expenses 3 07/01/2023 Difficulty of Paying Living Expenses Not on file 07/01/2023 Food Insecurity Answer Date Recorded Do you worry your food will run out before you are able to buy more? 1 07/01/2023 Transportation Needs Answer Date Record ed Does lack of transportation keep you from medica l appointments? 1 07/01/2023 Does lack of transportation keep you from work, meetings or getting things that you need? 1 07/01/2023 Housing Stability Answer Date Recorded What is your housing situation today? 1 07/01/2023 Utilities Answer Date Recorded Do you have trouble paying f or utilities (for example, heat, electricity, water, phone)? 1 07/01/2023 Comments No Sex and Gender Information Value Date Recorded Sex Assigned at Female 03/26/2021 12:10 PM STAFFING ANALYST Legal Sex Female 5:24 AM STAFFING ANALYST Gender Identity Female 03/26/2021 12:10 PM STAFFING ANALYST Sexual Orientation Straight 10/06/2023 11 :30 AM CDT Occupation Industry Job Start Date Job End Date Not on file Not on file Not on file Not on file Obstetrics History Para Term AB IAB SAB Ectopic Multiple Livin g Live Births 0 0 0 0 0 0 0 0 0 0 Last Filed Vital Signs Vital Sign Reading Time Taken Comments Blood Pressure 119/78 10/28/2023 10:35 AM CDT Pulse 96 10/28/2023 10:35 AM CDT Temperature 37.3 C (99.1 F) 03/28/2021 11:29 AM STAFFING ANALYST Respiratory Rate 16 10/31/2010 4:20 PM CDT Oxygen Saturation 98% 10/28/2023 10: 35 AM CDT Inhaled Oxygen Concentration - - Weight 68.4 kg (150 lb 12.8 oz) 024 10:35 AM CDT Height 158.5 cm (5' 2.4) 08/21/2023 4:06 PM CDT Body Mass Index 27.23 08/21/2023 4:06 PM CDT Plan of Treatment Health Maintenance Due Date Last Done Comments COVID-19 vaccine series ( season) 2023 01/24/2021, 06/16/2020 Influenza for age 9-49 11/30/2023 2, 03/28/2021, 01/03/2020, Additional history exists Pap test for age 21-65 04/28/2024 (Verified in Care Everywhere or Patient Record), 07/14/2023 (Verified in Care Everywhere or Patient Record), 07/01/2023, Additional history exists BMI (ht and wt on same day) for age 18+ 08/20/2024 08/21/2023, 07/01/2023, 05/02/2022, Additional history exists Depression screening for age 12+ 12/02/2024 12/03/2023, 10/21/2023, 10/08/2023, Additional history exists Tetanus booster 05/15/2027 05/15/2017, 10/22/2007 Tdap Completed 05/15/2017, 10/22/2007 HIV for age 15-65 Completed 07/01/2023, 05/02/2022 Hepatitis C screening for age 18-79 Completed 07/01/2023, 05/02/2022 Pneumococcal series for age 6-49 Aged Out No longer eligible based on patient's age to complete this topic Procedures Procedure Name Priority Date/Time Associated Diagnosis Comments ANTI HIV 1/2 Routine 07/01/2023 9:23 AM CDT Screening examination for STD (sexually transmitted disease) ANTI HCV Routine 07/01/2023 9:23 AM CDT Screening examination for STD (sexually transmitted disease) HPV HIGH RISK Routine 07/01/2023 9:10 AM CDT Screening for cervical cancer from Last 3 Months or Most Recently Relevant to Health Maintenance Results * ANTI HCV (07/01/2023 9:23 AM CDT) HEPATITIS C ANTIBODY Non-Reacti ve Non-React opal 07/01/2023 5:23 PM CDT [facility] Comment:Please note, per www .CDC.gov: If a patient is known to be at high risk of HCV infection, or is symptomatic, and the physician's suspicion of HCV infection is high, HCV RNA testing is often employed and is of diagnostic value, even after an initial negative anti-HCV test result. Blood BLOOD SPECIMEN / Unknown Venipuncture / Unknown 07/01/2023 9:23 AM CDT 07/01/2023 9:25 AM CDT us Sumaya Boykin MD SEND OUTS Final Resul t Performing Organization Address City/[facility]/ZIP Co de Phone Number [facility] [address] [place] [address], * ANTI HIV 1/2 (07/01/2023 9:23 AM CDT) HIV-1/HIV-2 SCREEN Non-Reacti ve Non-Reacti ve 07/01/2023 5:22 PM CDT [facility] Comment:HIV-1 p24 and HIV-1/ HIV-2 Ab Not Detected. Blood BLOOD SPECIMEN / Unknown Venipuncture / Unknown 07/01/2023 9:23 AM CDT 07/01/2023 9:25 AM CDT Sumaya Boykin MD SEND OUTS Final Resul t Performing Organization Address [facility] Co de Phone Number [facility] [address] [place] [address], * (ABNORMAL) HPV HIGH RISK (07/01/2023 9:10 AM CDT) TYPE 16 Negative Negative 07/04/2023 7:13 AM CDT [facility] TYPE 18 Positive(A) Negative 07/04/2023 7:13 AM CDT [facility] OTHER HIGH RISK TYPES Positive(A) Negative 07/04/2023 7:13 AM CDT [facility] Other (Cervical) Non-Blood / Unknown 07/01/2023 9:10 AM CDT 07/02/2023 9:09 AM CDT Narrative [facility] - 07/04/2023 7:13 AM CDT Specimen is positive for HPV type 18 DNA and the DNA of any one of, or combination of, the following high risk HPV types: 31, 33, 35, 39, 45, 51, 52, 56, 58,59, 66, 68. HPV type 16 DNA was undetectable or below the pre-set threshold. Methodology: Auto Mute Sweta 4800 HPV Test us Sumaya Boykin MD MICROBIOLOGY Final Resul t [facility] [address] [place] [address], [place] from Last 3 Months or Most Recently Relevant to Health Maintenance Insurance [facility] [employer] [facility] [employer] Member Subscriber Plan / Payer (Ef fective 2014-Present) Name:Lynda Eagle Relation to Subscriber:Employee Name:[employer]QUE[employer] NEWTON Date of :2000 (Home) Address: [address] [place] [address] Payer ID:Not on file Group ID:Not on file Type:Not on file Address: USE COVERAGE ADDRESS Care Teams Client Project Coordinator Relationship Specialty Start Date End Date Sumaya Boykin MD [address] [place] [address] PCP - General Family Practice 01/30/17
--- OUTSIDE RECORDS SUMMARY | 2024-04-26 17:22 | XMS_ITS | Continuity of Care Document ---
Author Organization [facility] Address [address] [address] [place] [address] Phone Care Team Providers Care Auto Phone Installer Name Role Phone Unavailable Unavailable Unavailable Allergies, Adverse Reactions, Alerts Substance Reaction Status Criticality amoxicillin Diarrhea Active No Information POTASSIUM CLAVULANATE Diarrhea Active No Inf ormation AMOXICILLIN TRIHYDRATE Diarrhea Active No In formation Medications Medication Instructions Dosage Effective Dates (start - stop) Status Comments Sprintec (28) 0.25 mg-35 mcg Tab take 1 tablet by oral route every day 1.00 tablet - Active Zoloft 100 mg Tab take 1.5 tablet (150MG) by oral route every morning 150 MG - Active Procedures Procedure Date Ugi Endo; W/bx 1/mx Offic Cons New/estab Mod [id number] Offic/outpt E&m New Low-mod 07 Advance Directives Directive Yes / No Effective Date File Name No Information Encounters Encounter Description Practice Location Reason(s) For Visit Diagnoses Date Provider Providers Copied on Encounter [facility], [address] [address], [place], [id number], tel:[phone] [facility] Procedures No Information No Information Referring Provider: Monique Holguin NP, [address], [place], [address]. tel:[phone] [facility], [address] [address], [place], [id number], [place] tel:[phone] [facility] Heartburn No Information Offic Cons New/estab Mod [facility], [address] [address], [place], [id number], [place] tel:[phone] [facility] Chest pain (chief complaint) Heartburn 1 No Information Referring Provider: Monique Holguin AUTO PHONE INSTALLER, [address], [place], [address]. tel:[phone] Offic/outpt E&m New Low-mod 20 [facility], [address] [address], [place], [id number], [place] tel:[phone] [facility] Abd Pain Nec/multi SiteVomiting Alone 7 No Information Family History Family Member Type Diagnosis Age At Onset First degree family history Problem (finding) No history of Colon Rectal Cancer Maternal grandmother Problem (finding) Maternal history of diabetes mellitus First degree family history Problem (finding) No histo ry of Crohn's First degree family history Problem (finding) No history of Ulcerative Colitis Maternal grandmother Problem (finding) Liver Gallbladd er Disease Maternal grandmother Problem (finding) Colon Polyps First degree family history Problem (finding) No Family history of No history of Colon Polyps Maternal grandfather Problem (finding) Maternal history of diabetes mellitus Maternal grandfather Problem (finding) Hepatitis Payers Payer name Insurance type Covered libertarian ID Authoriza ticolleen(s) [facility] CI [id number] Social History Type Description Quantity Date Captured Comments Sex Female Smoking Status No Information Chief Complaint And Reason For Visit No Information Reason For Referral Reason For Referral No Information History Of Present Illness Encounter Date Complaint History Of Prese nt Illness No Information Functional Status Date Functional Assessmen t No Information Instructions Date Instruction Additional Infor mation No Information Assessments Type Assessment Date No Information Patient Care Teams Name Effective Dates (start - stop) Status Members No Information
[2024-04-26 17:38] VITALS: BP 127/77; PULSE 98; RESP 18; TEMP 37.1; O2SAT 95; BMI 24.9
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
[2024-04-26 18:15] VITALS: O2SAT 99
--- OUTSIDE RECORDS SUMMARY | 2024-04-26 18:22 | XMS_ITS | Clinical Summary ---
Author Organization [facility] Address [place], [place] [address] Care Team Providers Care Program Director/Air Personality Name Role Phone Sumaya Boykin MD Primary [...] 03/2021 LSIL/HPV 18+, HPV 16 negative 05/2021 [place]: DON 1 05/2022 NIL/HPV Negative 06/2023 NIL/HPV+, HPV 18+, HPV 16 negative Plan: Colposcopy History of eating disorder 09/09/2018 Gastroesophageal reflux disease without esophagi tis 09/13/2016 Acne vulgaris 02/20/2016 ADD (attention deficit disorder) 06/07/2010 Obsessive compulsive disorder 06/07/2010 Encounters Date Type Department Care Team Description 03/04/2024 Telephone [facility] [address] [place] [address] Judith Leo MD Late Cancel Appointment 02/12/2024 Refill [facility] [address] [place] [address] Dick Nj MD Refill Request [...] Sex Assigned at Female 03/26/2021 12:10 PM TRANSITIONAL NURSE Legal Sex Female 5:24 AM TRANSITIONAL NURSE Gender Identity Female 03/26/2021 12:10 PM TRANSITIONAL NURSE Sexual Orientation Straight 10/06/2023 11 :30 AM [...] 37.3 C (99.1 F) 03/28/2021 11:29 AM TRANSITIONAL NURSE Respiratory Rate 16 10/31/2010 4:20 PM CDT [...] ve Non-React opal 07/01/2023 5:23 PM CDT [facility] Comment:Please note, per www .CDC.gov: [...] OUTS Final Resul t Performing Organization Address City/[facility]/ZIP Co de Phone Number [facility] [address] [place] [address], * ANTI HIV 1/2 (07/01/2023 9:23 AM CDT) HIV-1/HIV-2 SCREEN Non-Reacti ve Non-Reacti ve 07/01/2023 5:22 PM CDT [facility] Comment:HIV-1 p24 and HIV-1/ HIV-2 Ab Not Detected. Blood BLOOD SPECIMEN / Unknown Venipuncture / Unknown 07/01/2023 9:23 AM CDT 07/01/2023 9:25 AM CDT Sumaya Boykin MD SEND OUTS Final Resul t Performing Organization Address [facility] Co de Phone Number [facility] [address] [place] [address], * (ABNORMAL) HPV HIGH RISK (07/01/2023 9:10 AM CDT) TYPE 16 Negative Negative 07/04/2023 7:13 AM CDT [facility] TYPE 18 Positive(A) Negative 07/04/2023 7:13 AM CDT [facility] OTHER HIGH RISK TYPES Positive(A) Negative 07/04/2023 7:13 AM CDT [facility] Other (Cervical) Non-Blood / Unknown 07/01/2023 9:10 AM CDT 07/02/2023 9:09 AM CDT Narrative [facility] - 07/04/2023 7:13 AM CDT Specimen is positive for HPV type 18 DNA and the DNA of any one of, or combination of, the following high risk HPV types: 31, 33, 35, 39, 45, 51, 52, 56, 58,59, 66, 68. HPV type 16 DNA was undetectable or below the pre-set threshold. Methodology: [employer] Sweta 4800 HPV Test us Sumaya Boykin MD MICROBIOLOGY Final Resul t [facility] [address] [place] [address], [place] from Last 3 Months or Most Recently Relevant to Health Maintenance Insurance [facility] [employer] [facility] INSURANCE Member Subscriber Plan / Payer (Ef fective 2014-Present) Name:Lynda Eagle Relation to Subscriber:Employee Name:MARQUEZ NEWTON Date of :2000 (Home) Address: [address] [place] [address] Payer ID:Not on file Group ID:Not on file Type:Not on file Address: USE COVERAGE ADDRESS Care Teams Program Director/Air Personality Relationship Specialty Start Date End Date Sumaya Boykin MD [address] [place] [address] PCP - General Family Practice 01/30/17
--- OUTSIDE RECORDS SUMMARY | 2024-04-26 18:22 | XMS_ITS | Continuity of Care Document ---
Author Organization [facility] Address [address] [address] [place] [address] Phone Care Team Providers Care Solutions Specialist Name Role Phone Unavailable Unavailable Unavailable Allergies, [...] Encounter [facility], [address] [address], [place], [id number], tel:[phone] [facility] Procedures No Information No Information Referring Provider: Monique Holguin NP, [address], [place], [address]. tel:[phone] [facility], [address] [address], [place], [id number], [place] tel:[phone] [facility] Heartburn No Information Offic Cons New/estab Mod [facility], [address] [address], [place], [id number], [place] tel:[phone] [facility] Chest pain (chief complaint) Heartburn 1 No Information Referring Provider: Monique Holguin VISITING PROFESSOR, [address], [place], [address]. tel:[phone] Offic/outpt E&m New Low-mod [address] [facility], [address] [address], [place], [id number], [place] tel:[phone] [facility] Abd Pain Nec/multi SiteVomiting Alone [...] Hepatitis Payers Payer name Insurance type Covered alliance party ID Authoriza ticolleen(s) [facility] CI [id number] Social History Type Description Quantity Date Captured [...]
[2024-04-26 18:34] LABS: Amphetamine Screen Urine Negative (Negative); Barbiturate Screen Urine Negative (Negative); Benzodiazepines Screen Urine Negative (Negative); Cannabinoid Screen Urine POSITIVE (Negative); Cocaine Screen Urine Negative (Negative); Methadone Screen Urine Negative (Negative); Methamphetamines Screen Urine Negative (Negative); Opiate Screen Urine Negative (Negative); Oxycodone Screen Urine Negative (Negative); Phencyclidine Screen Urine Negative (Negative); Tricyclic Antidepressant Urine Negative (Negative)
[2024-04-26 18:37] LABS: Basophils Absolute Auto 0.05 K/uL (0.00-0.30); Basophils Percent Auto 0.6 % (0.0-3.0); Eosinophils Percent Auto 1.2 % (0.0-7.0); Hematocrit 39.5 % (33.0-51.0); Hemoglobin* 13.4 gm/dL (12.0-16.0); Immature Granulocytes Abs Auto 0.02 K/uL (0.00-0.30); Immature Granulocytes Pct Auto 0.2 %; Lymphocytes Absolute Auto 2.62 K/uL (0.90-2.90); Lymphocytes Percent Auto 30.5 % (20-44); Mean Corpuscular HGB Conc 34 gm/dL (32-36); Mean Corpuscular Hemoglobin 29 pg (26-34); Mean Corpuscular Volume 86 fL (80-100); Monocytes Percent Auto 5.5 % (0.0-11.0); Neutrophils Absolute Auto 5.33 K/uL (1.7-7.0); Platelet Count* 310 K/uL (140-440); RDW Coefficient of Variation % 14.1 % (11.5-15.5); Red Blood Count 4.59 m/uL (4.00-5.20); White Blood Count* 8.59 K/uL (4.50-11.00)
[2024-04-26 18:45] LABS: Ur HCG Qualitative* Negative (Negative)
[2024-04-26 18:45] LABS: Slide Review Reflex No
[2024-04-26 18:49] LABS: Albumin* 4.3 g/dL (3.3-5.0)
[2024-04-26 18:50] LABS: Chloride* 109 mmol/L (96-114); Potassium* 3.6 mmol/L (3.6-5.1); Sodium* 141 mmol/L (135-149)
[2024-04-26 18:52] LABS: Anion Gap 11 mEq/L (7-15); Bilirubin Total* 0.2 mg/dL (0.1-1.5); Carbon Dioxide* 21 mmol/L (20-32); Creatinine* 0.6 mg/dL (0.5-1.5); Est. Creatinine Clearance* 120.54; Estimated Glomerular Filt Rate 125 ml/min
[2024-04-26 18:53] LABS: Alanine Aminotransferase* 17 U/L (4-35); Alkaline Phosphatase* 86 U/L (40-150); Aspartate Amino Transferase* 25 U/L (12-35); Blood Urea Nitrogen* 9 mg/dL (5-24); Calcium* 9.1 mg/dL (8.4-10.6); Glucose* 78 mg/dL (60-115); Total Protein* 7.4 g/dL (6.0-8.3)
[2024-04-26 19:08] LABS: Acetaminophen* < 10.0 ug/mL (10.0-30.0); Salicylate* < 1.0 mg/dL (1.0-10)
[2024-04-26 19:09] LABS: Ethanol* 0.17 % (0.01-0.03)
== END 2024-04-26 21:28 | disposition home or self-care (01) ==
PROVIDERS: Emergency Provider Family Medicine; PCP Family Medicine
DX: F43.0 Acute stress reaction (principal); F10.920 Alcohol use, unspecified with intoxication, uncomplicated
CPT/HCPCS: 36415; 80053; 80143; 80179; 80306; 81025; 82077; 84443; 85025; 87635; 94761; 99284